=== PATIENT | female | born 1990 | race Caucasian/White ===

== ENCOUNTER → 2022-01-29 | Outpatient (CLI) | payer OTHER, SELFPAY | END | disposition home or self-care (01) | PROVIDERS: Visit Provider Family Medicine | DX: Z20.822 Contact with and (suspected) exposure to COVID-19 (principal) | CPT/HCPCS: 87635; U0003; U0005 ==

== ENCOUNTER → 2022-02-12 | Outpatient (CLI) | payer OTHER, SELFPAY ==
[2022-02-12 08:44] LABS: Thyroid Stim Hormone (TSH) 2.49 uIU/mL (0.358-3.74)
[2022-02-12 09:41] LABS: Hemoglobin A1c 5.1 % (3.8-5.6)
== END | disposition home or self-care (01) ==
LOC: LAB 07:07
PROVIDERS: PCP Family Medicine; Referring Provider Family Medicine; Visit Provider Family Medicine
DX: Z13.0 Encounter for screening for diseases of the blood and blood-forming organs and certain disorders involving the immune mechanism (principal); Z13.1 Encounter for screening for diabetes mellitus; Z13.29 Encounter for screening for other suspected endocrine disorder
CPT/HCPCS: 36415; 83036; 84443

== ENCOUNTER 2022-09-07 22:16 | Emergency (ER) | payer OTHER, SELFPAY ==
[2022-09-07 22:16] VITALS: BP 102/86; PULSE 123; RESP 18; TEMP 36.7; O2SAT 98; BMI 21.2
[2022-09-07] MEDS: Ondansetron 4 MG/2 ML Vial IV (22:52)
[2022-09-07 23:05] LABS: Absolute Lymphocyte Count 0.27 X10^3/uL (0.83-4.51); Absolute Neutrophil Count 9.5 X10^3/uL (2.0-7.7); Basophil# 0.02 X10^3/uL; Basophil% 0.2 % (0-1); Hematocrit 48.4 % (37-47); Hemoglobin 16.6 g/dL (12.0-15.0); Lymphocyte # 0.27 X10^3/ul (0.83-4.51); Lymphocyte % 2.7 % (19-41); Mean Corp Hgb Conc 34.3 g/dL (32-36); Mean Corpuscular Hgb 28.4 pg (27.0-32.0); Mean Corpuscular Volume 82.7 fL (81-99); Mean Platelet Vol. 10.4 fl (6.2-12.0); NRBC Flagged by Analyzer 0 % (0-5); Neutrophil # 9.52 X10^3/uL (2.7-7.7); Neutrophil % 93.7 % (47-70); POSITIVE DIFFERENTIAL YES; Platelet Count 188 K/mm3 (150-450); RBC Distribution Width CV 11.6 % (11.6-14.6); RBC Distribution Width SD 34.9 fl (35.1-43.9); Red Blood Count 5.85 M/mm3 (4.2-5.4); White Blood Count 10.2 K/mm3 (4.4-11.0)
[2022-09-07 23:07] LABS: Differential Indicated SCAN CRITERIA MET
[2022-09-07] MEDS: 0.9% Normal Saline 1,000 ML 999 ML IV ×2 (23:16→23:45)
[2022-09-07] MEDS: Diphenoxylate/Atrop 1 Tablet 2 TABLET PO (23:16)
[2022-09-07 23:18] LABS: Anion Gap 8 (5-15); BUN 18 mg/dL (7-18); BUN/Creat Ratio 16.4 RATIO (10-20); Calcium,Total 9.4 mg/dL (8.5-10.1); Chloride 103 mmol/L (98-107); EST Glomerular Filtration Rate 62 mL/min (>60); Est Glom Filt Rate - Afr Amer 75 mL/min (>60); Estimated Creatinine Clearance 73.15 ml/min; Glucose 157 mg/dL (74-106); Potassium 3.6 mmol/L (3.5-5.1); Sodium Level 135 mmol/L (136-145)
[2022-09-08 00:16] VITALS: RESP 18
--- NOTE | 2022-09-08 00:43 | EDS_ITS ---
HPI History of Present Illness Chief Complaint: Nausea/Vomiting/Diarrhea Narrative Narrative: Patient is a 31-year-old female who reports no significant past medical history. She states she woke this morning feeling normal but as the day progressed she developed loose stool/diarrhea and then bouts of nausea vomiting. She denies any known sick contacts. She denies any recent travel outside the country or antibiotic use. She states that she has had difficulty keeping fluids down and with the bouts of vomiting and diarrhea is concerned for dehydration and therefore comes in for evaluation. [facility] Medical History (Updated 09/08/22 @ 00:[address] Raleigh Ignacio, DO) Acne Home Medications drospirenone 3 mg-ethinyl estradiol 0.02 mg tablet (Loryna (28)) 1 tab PO DAILY 09/07/22 [History Last Taken Unknown] spironolactone 50 mg tablet 50 mg PO DAILY 09/07/22 [History Last Taken Unknown] tretinoin 0.025 % topical cream 1 applic topical QHS 09/07/22 [History Last Taken Unknown] diphenoxylate-atropine 2.5 mg-0.025 mg tablet (Lomotil) 1 tab PO 4X/DAY PRN PRN diarrhea 5 days #20 tabs 09/08/22 [Rx Last Taken Unknown] ondansetron 4 mg disintegrating tablet 4 mg PO TID PRN nausea and vomiting #21 tabs 09/08/22 [Rx Last Taken Unknown] Allergy/AdvReac Type Severity Reaction Status Date / Time cefadroxil Allergy Rash Verified 09/07/22 22:18 Penicillins Allergy Rash Verified 09/07/22 22:18 Sulfa (Sulfonamide Allergy Rash Verified 09/07/22 22:18 Antibiotics) Social History Smoking Status: Never smoker [facility] ED Constitutional Constitutional ED: Denies chills or fever(s) ENT ENT ED: Denies sore throat Cardiovascular Cardiovascular: Denies chest pain Respiratory/Chest Respiratory/Chest: Denies cough or dyspnea Gastrointestinal Gastrointestinal: Reports abdominal pain, diarrhea, nausea and vomiting Genitourinary Genitourinary ED: Denies dysuria Musculoskeletal Musculoskeletal: Reports myalgias Integumentary Denies rash Neurologic Neurologic: Denies headache(s) Hematologic/Lymphatic Hematologic/Lymphatic: Denies easy bleeding or easy bruising EXAM Physical Exam Const Vital Signs: 09/07/22 22:16 09/08/22 00:16 Temperature 98.0 F Temperature Source Temporal Pulse Rate 123 H Respiratory Rate 18 18 Blood Pressure 102/86 H Blood Pressure Mean 91 Pulse Ox 98 Oxygen Delivery Method Room Air Room Air Positive well nourished and well developed General Appearance ED: well developed HEENT Reports dry mucous membranes HEENT Narrative: Mucous membranes are dry and tacky. No airway edema or compromise. No signs of secondary infection in the posterior pharynx Mouth ED: Yes dry mucous membranes Mouth: dry mucous membranes Eyes PERRL and EOMs intact bilaterally General Eye ED: Negative for scleral icterus Neck supple Neck Narrative: No nuchal rigidity or meningeal signs noted Resp normal respiratory effort and clear to auscultation bilaterally Cardio regular rhythm Rate: tachycardic and other Other Details: Tachycardic rate with regular rhythm Radial pulses are plus 2 out of 4 bilaterally are equal and symmetric GI non-tender, non-distended and no masses GI Narrative: Abdomen is soft nontender nondistended with hyperactive bowel sounds. No voluntary guarding or rigidity no pulsatile mass Auscultation: hyperactive bowel sounds Palpation: soft Extremity normal to inspection Neuro oriented x3 and CN's II-XII intact bilaterally Sensorium / Orientation: alert Psych mental status grossly normal Skin no rashes or lesions noted Skin Narrative: Skin turgor is increased General Skin Exam: Negative for jaundice MDM MDM MDM Narrative Medical decision making narrative: Patient presented to the ER tachycardic but otherwise with stable vitals. Her abdomen is soft and nonsurgical so I felt no need for emergent imaging studies. Differential diagnosis includes viral gastroenteritis acute kidney injury electrolyte derangement such as hyponatremia or hyperkalemia infectious colitis pancreatitis or biliary colic. Based on her symptoms of diarrhea along with nausea and vomiting that came on gradually throughout the day this is most likely viral gastroenteritis. Basic labs were obtained which showed no signs of acute kidney injury or severe electrolyte derangement. She did have elevation of her creatinine from a baseline of 0.84-1.1. Consistent with dehydration but this elevation is not high enough to indicate MARI. Patient was given Lomotil and Zofran and 2 L of fluid. She had no further bouts of vomiting or diarrhea while in the ER. Therefore since she has been rehydrated and has had improvement of symptoms and overall work-up reveals no clinically significant changes she is otherwise safe for discharge with symptomatic care. History & Record Review Discussion w/independent historian: Patient Lab Data Attestation: I reviewed the patient's lab results. Labs: Laboratory Results - last 24 hr 09/07/22 09/07/22 23:00 23:00 WBC 10.2 RBC 5.85 H Hgb 16.6 H Hct 48.4 H MCV 82.7 MCH 28.4 MCHC 34.3 RDW Std Deviation 34.9 L RDW Coeff of Lauren 11.6 Plt Count 188 MPV 10.4 Immature Gran % (Auto) 0.400 Neut % (Auto) 93.7 H Lymph % (Auto) 2.7 L Hill % (Auto) 3.0 Eos % (Auto) 0.0 Baso % (Auto) 0.2 Absolute Neuts (auto) 9.5 H Absolute Lymphs (auto) 0.27 L Nucleated RBC % 0 Sodium 135 L Potassium 3.6 Chloride 103 Carbon Dioxide 24.0 Anion Gap 8 BUN 18 Creatinine 1.10 H Estim Creat Clear Calc 73.15 Est GFR (MDRD) Af Amer 75 Est GFR (MDRD) Non-Af 62 BUN/Creatinine Ratio 16.4 Glucose 157 H Calcium 9.4 Discharge Plan Triage Chief Complaint: Nausea/Vomiting/Diarrhea ED Provider: Raleigh Ignacio Dx/Rx/DC Orders Clinical Impression: Nausea vomiting and diarrhea, Dehydration Instructions: ED Dehydration (Adult), ED Gastroenteritis, Viral (Adult) Prescriptions: New diphenoxylate-atropine [Lomotil] 2.5-0.025 mg tablet 1 tab PO 4X/DAY PRN PRN (Reason: diarrhea) 5 Days Qty: 20 0RF ondansetron 4 mg tablet,disintegrating 4 mg PO TID PRN (Reason: nausea and vomiting) Qty: 21 0RF No Action tretinoin 0.025 % Cream 1 applic TOPICAL QHS spironolactone 50 mg tablet 50 mg PO DAILY drospirenone-ethinyl estradiol [Loryna (28)] 3-0.02 mg tablet 1 tab PO DAILY Stand Alone Forms: ED Work / School Excuse Primary Care Provider: Radha Barriga Referrals: Radha Barriga, DO [Primary Care Provider] - Activity Restrictions/Additional Instructions: Please take the medication as directed to help control your symptoms and keep yourself well-hydrated. Return to the ER should you have any further concerns Disposition Disposition: Home, Self Care Discharge Date/Time: 09/08/22 00:51
== END 2022-09-08 00:51 | disposition home or self-care (01) ==
PROVIDERS: Emergency Provider Emergency Medicine; PCP Family Medicine; Visit Provider Emergency Medicine
DX: R11.2 Nausea with vomiting, unspecified (principal); R19.7 Diarrhea, unspecified; E86.0 Dehydration
CPT/HCPCS: 80048; 85025; 96361; 96374; 99282; J7030; A4216; J2405

== ENCOUNTER → 2023-07-19 | Outpatient (CLI) | payer OTHER, SELFPAY ==
--- OUTSIDE RECORDS SUMMARY | 2023-07-19 07:57 | XMS RPT_ITS | CCD ---
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 Name Role Phone Maximino Benjaminsusan Vaughan Unavailable Unavailable [facility] Unavailable Unavailable MADDY BENJAMIN GENE Unavailable Unavailable Agustina Epstein APRN.CNP Primary Care Provider [phone] Allergies Allergy Classification Reported Allergen(s) Allergy Type Date of Onset Reaction(s) Facility (4 sources) cefadroxil; Translations: [CEFADROXIL] Drug Allergy 5 [facility] Repository (4 sources) Penicillins; Translations: [PENICILLINS] Propensity to adverse reactions (disorder) 5 [facility] Repository (4 sources) Sulfonamides (Antibiotic); Translations: [SULFA (SULFONAMIDE ANTIBIOTICS)] Propensity to adverse reactions (disorder) 5 [facility] Repository Medications Current Medications Medication Drug Class(es) Dates Sig (Normalized) Sig (Original) spironolactone 50 mg oral tablet (1 source) Aldosterone Antagonist Start: 10-30-2021 take 1 tablet by mouth once daily spironolactone (ALDACTONE) 50 mg tablet Take 1 tablet by mouth once daily. 90 tablet 1 10/30/2021 Active Completed/Discontinued Medications Medication Drug Class(es) Dates Sig (Normalized) Sig (Original) cholecalciferol 0.025 mg oral capsule (2 sources) Vitamin D Cholecalciferol, Vitamin D3, (VITAMIN D) 25 mcg (1,000 unit) cap Take 1,000 Units by mouth once daily. 0 Active Problems Problem Classification Problem Date Documented Da te Episodic/Chronic Other skin disorders (2 sources) Acne; Translations: [Acne, unspecified] Onset: 02-07-2015 12-27-2021 Episodic Results Test Name Value Interpretation Reference Range Facil ity Encounters Encounter Date Encounter Type Care Provider Facility Start: 10-27-2021 Refill Shasta Calixstephen vasques PA-C Work Phone: [facility] Dermatology Procedures Date Procedure Procedure Detail Performing Clinician Start: 01-21-2021 Adult depression screening assessment Brenden Vega PA-C Work Phone: Plan of Treatment Date Care Activity Detail Author Start: 12-23-2025 Urine microalbumin profile DTA P,TDAP,TD (2 - Td or Tdap) [facility] Start: 02-25-2024 PAP TESTING PAP TESTING [facility] Start: 01-21-2022 Adult depression scr eening assessment DEPRESSION SCREENING [facility] Start: 2010 HEPATITIS C SCREENING HEPATITIS C SC REENING [facility] Start: 2010 HIV SCREENING HIV SCREENING [facility] Immunizations Immunization Date Immunization Notes Care Provider Fa cility 02-20-2021 influenza virus vacc ine, unspecified formulation Brenden Vega PA-C Work Phone: [facility] 02-20-2021 influenza, injectabl e, quadrivalent, contains preservative Brenden Vega PA-C Work Phone: [facility] 05-28-2020 COVID-19 vaccine, fu ll dose (MODERNA) Brenden Vega PA-C Work Phone: [facility] 02-14-2019 influenza virus vacc ine, unspecified formulation Brenden Vega PA-C Work Phone: [facility] 05-23-2018 influenza virus vacc ine, unspecified formulation Brenden Vega PA-C Work Phone: [facility] 05-23-2018 influenza, injectabl e, quadrivalent, contains preservative Brenden Vega PA-C Work Phone: [facility] 05-19-2017 Human Papillomavirus 9-valent vaccine Brenden Vega PA-C Work Phone: [facility] 05-19-2017 influenza, injectabl e, quadrivalent, contains preservative Brenden Vega PA-C Work Phone: [facility] 12-24-2015 tetanus toxoid, redu anita diphtheria toxoid, and acellular pertussis vaccine, adsorbed Brenden RAIN-Jac Work Phone: [facility] 12-21-2014 hepatitis B vaccine, adult dosage Brenden Snydercarly RAIN-C Work Phone: [facility] Work Phone: 12-21-2014 hepatitis B vaccine, pediatric or pediatric/adolescent dosage Brendenana rosa RAIN-C Work Phone: [facility] 07-23-2014 hepatitis B vaccine, adult dosage Brenden Snydercarly RAIN-C Work Phone: [facility] 06-23-2014 hepatitis B vaccine, adult dosage Brenden Snydercarly RAIN-C Work Phone: [facility] Payers Date Payer Category Payer Unknown [employer] PPO OOS [id number] 2018-Present [phone] [address] [place] [address] PPO [id number] Social History Date Type Detail Facility Tobacco smoking stat [facility] Never smoked tobacco [facility] Start: 07-22-2021 End: 09-15-2021 Alcohol intake Current drinker of alcohol (finding) [facility] Start: 07-24-2019 History SDOH Alcohol Std Drinks 1 [facility] Start: 07-24-2019 History SDOH Alcohol Binge 4 [facility] Start: 07-27-2014 History SDOH Alcohol Comment Occasionally [facility] Start: 1990 Sex Assigned At Female C [facility] Start: 09-05-2021 End: 09-15-2021 Exposure to SARS-CoV-2 (event) Not sure [facility] Clinical Notes 11-05-2020 to 10-30-2021 Telephone Encounter - Jackie Vital MA - 10/30/2021 7:10 AM EDTTelephone Encounter - Marquita Abreu - 10/27/2021 1:16 PM EDTTelephone Encounter - Shasta Finley PA-C - 10/27/2021 1:08 PM EDT Note Date & Type Note Facility 10-30-2021 Miscellaneous Notes Patient states she is still taking this she does not know how it was taken off She does need a refill LMTCO Check with patient if she is still taking the spironolactone as it is off her medication list Pharmacy faxes requesting refill: Pending Prescriptions Disp Refills SPIRONOLACTONE 50 MG TABLET 90 tablet 0 Sig: Take 1 tablet by mouth once daily. Date of last visit: 04/28/21 Phone #: [phone] (home) [phone] (cell) The patients preferred pharmacy has been captured for this encounter? yes documented in this encounter [facility] 09-15-2021 Note HNO ID: [id number] Author: Agustina Epstein APRN.ARCH CUSHION SKIVING MACHINE OPERATOR Service: ? Author Type: Nurse Practitioner Type: Progress Notes Filed: 09/15/2021 4:27 PM Note Text: SUBJECTIVE: Marii Hillman is a 30 year old female here today for Fever, Cough, Fatigue, Headache, and Diarrhea. HPI: Marii presents with URI symptoms. She started about 10 days ago. Pt finished antibiotic over the weekend from [facility] in [place]. Pt got no relief from antibiotic (Zpak). Pt took home Covid test yesterday, negative result. 100.4 this am. PAST MEDICAL HISTORY Diagnosis Date - Acne ALLERGIES Allergen Reactions - Duracef [Cefadroxil] Rash - Penicillins Rash - Sulfa (Sulfonamide * Rash Medications: Current Outpatient Medications Medication Sig Dispense Refill - melatonin 5 mg tablet Take 10 mg by mouth at bedtime as needed for for insomnia. - Drospirenone-Ethinyl Estradiol (MIGUEL 28) 3-0.02 mg per tablet TAKE 1 TABLET DAILY 84 tablet 3 - fluticasone propionate (FLONASE ALLERGY RELIEF NASAL) Use in the nose as needed. - Cholecalciferol, Vitamin D3, (VITAMIN D) 25 mcg (1,000 unit) cap Take 1,000 Units by mouth once daily. - tretinoin (RETIN-A) 0.025 % topical cream Apply pea size drop to entire face at bedtime 45 g 3 - azithromycin (ZITHROMAX) 250 mg tablet Two tablets day 1 then one tablet days 2-5 (Patient not taking: Reported on 09/15/2021 ) 6 tablet 0 No current facility-administered medications for this visit. PAST SURGICAL HISTORY Procedure Laterality Date - EXTRACTION, ERUPTED TOOTH OR EXPOSED ROOT (ELEVATION AND/OR FORCEPS REMOVAL) [place] teeth Social History Tobacco Use - Smoking status: Never Smoker - Smokeless tobacco: Never Used Vaping Use - Vaping Use: Never used Substance Use Topics - Alcohol use: Yes Comment: Occasionally - Drug use: No FAMILY HISTORY Problem Relation Age of Onset - Hypertension Father - Diabetes Maternal Grandmother - Diabetes Paternal Grandfather Review of Systems Constitutional: Positive for fatigue and fever. HENT: Negative. Eyes: Negative. Respiratory: Positive for cough. Cardiovascular: Negative. Gastrointestinal: Positive for diarrhea. Negative for nausea. Endocrine: Negative. Genitourinary: Negative. Musculoskeletal: Negative. Skin: Negative. Neurological: Positive for headaches. Hematological: Negative. Psychiatric/Behavioral: Negative. OBJECTIVE: BP 114/79 Pulse 102 Temp 36.7 ?C (98.1 ?F) (Oral) Ht 170.2 cm (5' 7 ) Wt 53.4 kg (117 lb 11.2 oz) LMP 02/10/2021 SpO2 99% BMI 18.43 kg/m? BMI 18.43 kg/(m2) Physical Exam Constitutional: Appearance: Normal appearance. She is not ill-appearing. HENT: Right Ear: Tympanic membrane normal. Left Ear: Tympanic membrane normal. Nose: Mucosal edema present. Right Turbinates: Enlarged. Left Turbinates: Enlarged. Right Sinus: No maxillary sinus tenderness or frontal sinus tenderness. Left Sinus: No maxillary sinus tenderness. Mouth/Throat: Pharynx: Oropharynx is clear. Posterior oropharyngeal erythema (Mild cobblestone appearance) present. No oropharyngeal exudate. Cardiovascular: Rate and Rhythm: Normal rate and regular rhythm. Heart sounds: Normal heart sounds. Pulmonary: Effort: Pulmonary effort is normal. Breath sounds: Normal breath sounds. Skin: General: Skin is warm and dry. Coloration: Skin is pale. Neurological: Mental Status: She is alert and oriented to person, place, and time. ASSESSMENT/PLAN: 1. Acute non-recurrent maxillary sinusitis - ICD9: 461.0, ICD10: J01.00 - Will begin treatment with as per antibiotic as written, see orders - Supportive care with plenty of fluids, rest, and analgesia prn. - CLINDAMYCIN HCL 300 MG CAPSULE Return if symptoms worsen or fail to improve. Agustina Epstein APRN.ARCH CUSHION SKIVING MACHINE OPERATOR The above medical documentation was generated using [employer] recognition system, as such, the contents may contain grammatical errors. [facility] 09-09-2021 History of Present illness Narrative DATE OF SERVICE: 09/09/2021 CHIEF COMPLAINT: Cough. HISTORY OF PRESENT ILLNESS: The patient states she has had a cough and congestion for the last 4-5 days. She states the cough is nonproductive. Denies any fevers that have been greater than 100.4. She states her highest one was 100.2, and that was this morning. She states she had 99.8 on Wednesday. She states she did have some diarrhea over the weekend. Denies any currently. Denies any nausea or vomiting. Denies any COVID exposures. Denies any influenza exposures. Denies any loss of taste or smell. Denies any chest pain. She states she did have a little bit of shortness of breath with coughing episodes while in the shower this morning. Denies any shortness of breath currently. Denies any recent travel, trauma, surgery or hormone replacement therapy. PAST MEDICAL HISTORY AND SOCIAL HISTORY: As per nursing records, which were reviewed. MEDICATIONS AND ALLERGIES: As per nursing records, which were reviewed. REVIEW OF SYSTEMS: All 10 systems otherwise reviewed and found to be negative other [facility] PATIENT NAME: MARII HILLMAN Jennifer Kowalski MEDICAL REC #: [id number] [place] [address] [facility] REPORT [facility] PHYSICIAN than that in [place] PHYSICAL EXAMINATION: This is a 30-year-old female who is well-developed, well-nourished and in no acute distress. Vital signs per chart, including a temperature of 98.6, pulse oximetry 98%, respiratory rate 16, pulse 89, blood pressure 126/80. HEENT: Head is normocephalic, atraumatic. Eyes are PERRLA. TMs are clear bilaterally. Nasal mucosa is pink. Septum is midline. Some clear rhinorrhea. No sinus tenderness. Oropharynx is without hypertrophy, erythema or exudate. Mucus membranes are moist. Neck: Trachea is midline. Neck is supple without JVD or lymphadenopathy. No meningeal signs. Cardiac: Regular rate and rhythm, normal S1, S2. No murmurs, rubs or clicks. Respiratory: Lungs are clear to auscultation bilaterally without wheezes, rhonchi or crackles. Neurologically, patient is alert and oriented x3. Speech is clear and appropriate. No gross focal neurologic deficits noted. TREATMENT COURSE: I did instruct the patient that I felt like this is viral in nature. Rest, fluids, [id number] cough decongestant. Follow up with her PCP for a recheck in 5 days. ER warning signs given. I did instruct patient that if she is not feeling better in the next couple of days, she could start taking the [facility] PATIENT NAME: MARII HILLMAN Jennifer Kowalski MEDICAL REC #: [id number] [place] [address] [facility] REPORT [facility] PHYSICIAN Alexa de la rosa take as directed. The patient was agreeable on disposition. CLINICAL IMPRESSION: Upper respiratory infection. Brenden Vega PA-C [id number] SSI File#: [id number] END OF DOCUMENT / CHANGE LOG FOLLOWS Last Edited By [employer]c. Signed By Brenden Vega PAC #[email or web address] Brenden Vega PAC #[email or web address] on 09/15/2021 08:32 ET on 09/15/2021 08:32 ET Revision Number - 2 Verified/Reviewed by 09/15/2132 SHAYLEE [facility] PATIENT NAME: MARII HILLMANAlex Jennifer Kowalski MEDICAL REC #: [id number] [place] [address] [facility] REPORT [facility] PHYSICIAN documented in this encounter [facility] 07-22-2021 Note HNO ID: [id number] Author: Agustina Epstein APRN.ARCH CUSHION SKIVING MACHINE OPERATOR Service: ? Author Type: Nurse Practitioner Type: Progress Notes Filed: 07/22/2021 3:08 PM Note Text: Patient has consented to patient-provider interaction via Zoom visit for the medical decision making documented in this encounter via real-time Video and Audio or telephone. Time Spent: 11-20 minutes SUBJECTIVE: Marii Hillman is a 30 year old female here today for Cough, Sore Throat, Fever, Nasal Congestion, and fatigue HPI: Marii presents today with upper respiratory infection symptoms including cough, sore throat, fever, congestion and fatigue. Symptoms started on Thursday 07/20. Highest temp was 100.3 this morning. While talking the phone it was 99.0 today. Fatigue also started today. Shehas taken OTC Cold AND flu, no relief. 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 No family members sick that she is aware of. She did get her COVID booster in May. PAST MEDICAL HISTORY Diagnosis Date - Acne ALLERGIES Allergen Reactions - Duracef [Cefadroxil] Rash - Penicillins Rash - Sulfa (Sulfonamide * Rash Medications: Current Outpatient Medications Medication Sig Dispense Refill - melatonin 5 mg tablet Take 10 mg by mouth at bedtime as needed for for insomnia. - Drospirenone-Ethinyl Estradiol (MIGUEL 28) 3-0.02 mg per tablet TAKE 1 TABLET DAILY 84 tablet 3 - fluticasone propionate (FLONASE ALLERGY RELIEF NASAL) Use in the nose as needed. - Cholecalciferol, Vitamin D3, (VITAMIN D) 25 mcg (1,000 unit) cap Take 1,000 Units by mouth once daily. - tretinoin (RETIN-A) 0.025 % topical cream Apply pea size drop to entire face at bedtime 45 g 3 - spironolactone (ALDACTONE) 50 mg tablet Take 1 tablet by mouth every morning. 90 tablet 3 No current facility-administered medications for this visit. PAST SURGICAL HISTORY Procedure Laterality Date - EXTRACTION, ERUPTED TOOTH OR EXPOSED ROOT (ELEVATION AND/OR FORCEPS REMOVAL) [place] teeth Social History Tobacco Use - Smoking status: Never Smoker - Smokeless tobacco: Never Used Vaping Use - Vaping Use: Never used Substance Use Topics - Alcohol use: Yes Comment: Occasionally - Drug use: No FAMILY HISTORY Problem Relation Age of Onset - Hypertension Father - Diabetes Maternal Grandmother - Diabetes Paternal Grandfather Review of Systems Constitutional: Positive for fatigue and fever. Negative for chills. HENT: Positive for congestion, postnasal drip, sore throat and voice change. Negative for ear pain. Clear drainage from nose. Eyes: Negative. Respiratory: Positive for cough. Negative for chest tightness, shortness of breath and wheezing. Cough is unproductive Cardiovascular: Negative for chest pain, palpitations and leg swelling. Gastrointestinal: Negative for abdominal pain, constipation, diarrhea, nausea and vomiting. Endocrine: Negative. Genitourinary: Negative. Musculoskeletal: Negative for back pain and myalgias. Skin: Negative for rash. Allergic/Immunologic: Negative. Neurological: Positive for headaches. Negative for dizziness. Hematological: Negative. OBJECTIVE: Temp 37.2 ?C (99 ?F) (Temporal) LMP 02/10/2021 No weight on file for this encounter. Physical Exam Constitutional: Appearance: Normal appearance. She is ill-appearing. HENT: Nose: Comments: Some postnasal drip noted Mouth/Throat: Pharynx: Posterior oropharyngeal erythema present. Pulmonary: Effort: Pulmonary effort is normal. Skin: Coloration: Skin is pale. Neurological: Mental Status: She is alert and oriented to person, place, and time. ASSESSMENT/PLAN: 1. Acute non-recurrent sinusitis, unspecified location - ICD9: 461.9, ICD10: J01.90 (primary diagnosis) - Will begin treatment with Zithromax pack as directed - Supportive care with plenty of fluids, rest, and analgesia prn. -Recommended use of a saline nasal flush to decrease mucus production and drainage. -Offered to test the patient for coronavirus and/or flu but she declined at this time will stay in quarantine until 5 days or symptoms resolved. - AZITHROMYCIN 250 MG TABLET 2. Fever, unspecified fever cause - ICD9: 780.60, ICD10: R50.9 -Encouraged her to increase fluids with small sips every 15 minutes if she develops any nausea. -Ibuprofen or Tylenol can be used as directed headache and fever. - AZITHROMYCIN 250 MG TABLET 3. Cough - ICD9: 786.2, ICD10: R05.9 -Saline nasal flush may help with the cough. If cough worsens she is to call for another appointment. - AZITHROMYCIN 250 MG TABLET 4. Fatigue, unspecified type - ICD9: 780.79, ICD10: R53.83 -Rest -Off work for at least the next 2 days and may return to work on Tuesday 07/25 if no fever or worsening symptoms. - AZITHROMYCIN 250 MG TABLET Return if symptoms worsen or fail to improve. Agustina Epstein APRN.ARCH CUSHION SKIVING MACHINE OPERATOR The above medical documentation was generated using [employer] voice recognition system, as (more content not included)... [facility] 04-28-2021 Note HNO ID: [id number] Author: Shasta Finley PA-C Service: ? Author Type: Physician [employer] Teacher Type: Progress Notes Filed: 04/28/2021 11:47 PM Note Text: This is a 30 year old White female who presents today for a follow up for her acne. Patient states that she is currently on spironolactone and tretinoin cream. She states she is doing well and staying clear. She has been tolerating the medicine well without any problems. ACTIVE PROBLEM LIST Acne ALLERGIES Allergen Reactions - Duracef [Cefadroxil] Rash - Penicillins Rash - Sulfa (Sulfonamide * Rash FAMILY HISTORY Problem Relation Age of Onset - Hypertension Father - Diabetes Maternal Grandmother - Diabetes Paternal Grandfather Social History Tobacco Use - Smoking status: Never Smoker - Smokeless tobacco: Never Used Vaping Use - Vaping Use: Never used Substance Use Topics - Alcohol use: Yes Comment: Occasionally - Drug use: No Current Outpatient Medications Medication Sig Dispense Refill - melatonin 5 mg tablet Take 10 mg by mouth at bedtime as needed for for insomnia. - spironolactone (ALDACTONE) 50 mg tablet Take 1 tablet by mouth every morning. 90 tablet 3 - Drospirenone-Ethinyl Estradiol (MIGUEL 28) 3-0.02 mg per tablet TAKE 1 TABLET DAILY 84 tablet 3 - fluticasone propionate (FLONASE ALLERGY RELIEF NASAL) Use in the nose as needed. - Cholecalciferol, Vitamin D3, (VITAMIN D) 25 mcg (1,000 unit) cap Take 1,000 Units by mouth once daily. - tretinoin (RETIN-A) 0.025 % topical cream Apply pea size drop to entire face at bedtime 45 g 3 No current facility-administered medications for this visit. PAST SURGICAL HISTORY Procedure Laterality Date - EXTRACTION, ERUPTED TOOTH OR EXPOSED ROOT (ELEVATION AND/OR FORCEPS REMOVAL) [place] teeth REVIEW OF SYSTEMS GENERAL: Patient feels well and denies any recent fevers, chills, or night sweats. SKIN: Negative for rash and itching, Positive for lesions: face PHYSICAL EXAMINATION The patient is pleasant and in no distress. She is alert and oriented x 3. Involving the face, chest and back. -face is clear with atrophic scarring with pitted scars of b/l cheeks -back and chest are clear ASSESSMENT/PLAN: 1. Acne vulgaris - ICD9: 706.1, ICD10: L70.0 -continue Tretinoin 0.025% cream apply pea sized amount to entire face qhs, has on hand -discussed side effects of dryness/skin irritation -may use OTC CeraVe or Cetaphil cream with SPF 30 daily -continue spironolactone 50 mg once daily, eRx sent -Side effects of spironolactone include: postural hypotension, increased frequency of urination, breast tenderness, menstrual spotting, and the need for contraception due to risk of feminization. -continue gentle cleansers and daily face moisturizers with spf 30 - SPIRONOLACTONE 50 MG TABLET Shasta Finley PA-C Return in about 1 year (around 04/28/2022). [facility] 02-24-2021 Note HNO ID: [id number] Author: Agustina Epstein APRN.ARCH CUSHION SKIVING MACHINE OPERATOR Service: ? Author Type: Nurse Practitioner Type: Progress Notes Filed: 02/24/2021 5:27 PM Note Text: SUBJECTIVE: Marii Hillman is a 30 year old female here today for an annual physical. I reviewed her past medical, surgical, social, and family histories today and updated chart. Allergies, chronic medications, and supplements were also reviewed and her list is now up to date. HPI: Marii presents today for annual female wellness exam with Pap. Periods are regular 28 day cycle. No excessive clotting or cramping. Not sexually active at this time. No other complaints. She is performing self-breast exams? Yes Any concerns about her breasts? No Any family history of breast cancer? No Patient's last menstrual period was 02/10/2021. Are her periods regular? Yes Any concerns about her periods? No Current method of control: Oral contraceptives She wants STD testing? No Her medications were reviewed today and her list is now up to date. She is compliant on taking her medications :Yes She is tolerating her medication(s) without side effects: Yes She is following an appropriate diet for her medical problems: Yes She is getting some exercise in? Yes PAST MEDICAL HISTORY Diagnosis Date - Acne ALLERGIES Allergen Reactions - Duracef [Cefadroxil] Rash - Penicillins Rash - Sulfa (Sulfonamide * Rash Medications: Current Outpatient Medications Medication Sig Dispense Refill - fluticasone propionate (FLONASE ALLERGY RELIEF NASAL) Use in the nose. - Cholecalciferol, Vitamin D3, (VITAMIN D) 25 mcg (1,000 unit) cap Take 1,000 Units by mouth once daily. - Drospirenone-Ethinyl Estradiol (MIGUEL 28) 3-0.02 mg per tablet Take 1 tablet by mouth once daily. 84 tablet 0 - spironolactone (ALDACTONE) 50 mg tablet Take 1 tablet by mouth every morning. 90 tablet 1 - tretinoin (RETIN-A) 0.025 % topical cream Apply pea size drop to entire face at bedtime 45 g 3 No current facility-administered medications for this visit. PAST SURGICAL HISTORY Procedure Laterality Date - EXTRACTION, ERUPTED TOOTH OR EXPOSED ROOT (ELEVATION AND/OR FORCEPS REMOVAL) [place] teeth Social History Tobacco Use - Smoking status: Never Smoker - Smokeless tobacco: Never Used Vaping Use - Vaping Use: Never used Substance Use Topics - Alcohol use: Yes Comment: Occasionally - Drug use: No FAMILY HISTORY Problem Relation Age of Onset - Hypertension Father - Diabetes Maternal Grandmother - Diabetes Paternal Grandfather Review of Systems Constitutional: Negative for chills, fatigue and fever. HENT: Negative. Eyes: Negative. Respiratory: Negative for cough, chest tightness, shortness of breath and wheezing. Cardiovascular: Negative for chest pain, palpitations and leg swelling. Gastrointestinal: Negative for abdominal pain, constipation, diarrhea, nausea and vomiting. Endocrine: Negative. Genitourinary: Negative. Negative for vaginal bleeding, vaginal discharge and vaginal pain. Musculoskeletal: Negative for back pain and myalgias. Skin: Negative. Allergic/Immunologic: Negative. Neurological: Negative for dizziness, numbness and headaches. Hematological: Negative. Psychiatric/Behavioral: Negative. OBJECTIVE: BP 108/70 Pulse 86 Temp 36.8 ?C (98.2 ?F) (Oral) Ht 170.2 cm (5' 7 ) Wt 52.2 kg (115 lb) LMP 02/10/2021 SpO2 100% BMI 18.01 kg/m? Body mass index is 18.01 kg/m?. Physical Exam Exam conducted with a machine preservative filler present. Constitutional: Appearance: Normal appearance. She is not ill-appearing. Pulmonary: Effort: Pulmonary effort is normal. Genitourinary: Exam position: Lithotomy position. Labia: Right: Rash present. No tenderness. Left: Rash present. No tenderness. Vagina: Normal. Cervix: Friability, erythema and cervical bleeding present. Uterus: Normal. Adnexa: Right adnexa normal and left adnexa normal. Comments: Located at the 5 o'clock position. Patient admits to using toys . Musculoskeletal: Right lower leg: No edema. Left lower leg: No edema. Skin: General: Skin is warm and dry. Neurological: Mental Status: She is alert and oriented to person, place, and time. Psychiatric: Mood and Affect: Mood normal. ASSESSMENT/PLAN: 1. Cervical cancer screening - ICD9: V76.2, ICD10: Z12.4 - Completed pap test and breast exam - Encouraged monthly BSE - Follow up for annual exam in one year. - IGP, APTIMA HPV Agustina Epstein, COMPANY DOCTOR.ARCH CUSHION SKIVING MACHINE OPERATOR The above medical documentation was generated using [employer] recognition system, as such, the contents may contain grammatical errors. [facility] 02-20-2021 Note HNO ID: [id number] Author: Damari Ruggiero, DO Service: ? Author Type: Physician Type: Progress Notes Filed: 02/20/2021 3:47 PM Note Text: New Patient Consult REASON FOR VISIT Marii Hillman is a 30 year old female who is scheduled for a consult at the request of Agustina Epstein for Consult (Cyst on left breast). My final recommendations will be communicated back to the requesting physician by the way of the shared medical record, fax, or via US Mail History of Present Illness: This is a 30 F that presents with a left nipple cyst that intermittently drains. She has noticed it over the past few months on the inferior aspect of her nipple. No pain. Drainage is consisntent with sebaceous material. No fevers or chills. No palpable lumps and no family hx of breast cancer. PAST MEDICAL HISTORY Diagnosis Date - Acne PAST SURGICAL HISTORY Procedure Laterality Date - EXTRACTION, ERUPTED TOOTH OR EXPOSED ROOT (ELEVATION AND/OR FORCEPS REMOVAL) [place] teeth FAMILY HISTORY Problem Relation Age of Onset - Hypertension Father - Diabetes Maternal Grandmother - Diabetes Paternal Grandfather Social History Tobacco Use - Smoking status: Never Smoker - Smokeless tobacco: Never Used Vaping Use - Vaping Use: Never used Substance Use Topics - Alcohol use: Yes Comment: Occasionally - Drug use: No MEDICATIONS Current Outpatient Medications Medication Sig Dispense Refill - fluticasone propionate (FLONASE ALLERGY RELIEF NASAL) Use in the nose. - Cholecalciferol, Vitamin D3, (VITAMIN D) 25 mcg (1,000 unit) cap Take 1,000 Units by mouth once daily. - Drospirenone-Ethinyl Estradiol (MIGUEL 28) 3-0.02 mg per tablet Take 1 tablet by mouth once daily. 84 tablet 0 - spironolactone (ALDACTONE) 50 mg tablet Take 1 tablet by mouth every morning. 90 tablet 1 - tretinoin (RETIN-A) 0.025 % topical cream Apply pea size drop to entire face at bedtime 45 g 3 No current facility-administered medications for this visit. CURRENT ALLERGIES ALLERGIES Allergen Reactions - Duracef [Cefadroxil] Rash - Penicillins Rash - Sulfa (Sulfonamide * Rash REVIEW OF SYSTEMS General: No weight loss, malaise or fevers. Neuro: No Hx of stroke or seizures Respiratory: No history of current cough or dyspnea, or pneumonia in the past 6 weeks. No history of respiratory/pulmonary symptoms or problems Cardiovascular: No history of HTN requiring medication, no history of angina, CHF, MS, cardiac surgery or stents. Denies rest pain, gangrene or revascularization/amputation for PVD. No history of cardiovascular symptoms or problems. GI: No history of GI symptoms or problems. No history of esophageal varices, recent ascites, or ETOH greater than 2 drinks per day. : No history of UTI in past 6 weeks. No history of renal failure. Not currently on or requiring dialysis. No history of symptoms or problems. Endocrine: No history of diabetes. Has not taken steroids within the past 30 days. No history of endocrinological symptoms or problems. Hematology: No history of bleeding or clotting disorder. Pt is not taking anti-coagulation or platelet medications. No history of hematological symptoms or problems. Oncology: No history of CA metastasis, chemo within 30 days, or radiotherapy within 90 days. Has not lost 10% of body wt in 6 months. No history of oncological symptoms or problems. Psych: No history of psychiatric symptoms or problems. Musculoskeletal: Negative for joint pain or swelling, back pain or muscle pain. Skin: Negative for lesions, rash and itching. PHYSICAL EXAMINATION Ht 5' 7 (1.70m) Wt 115 lb (52.2kg) LMP 01/06/2021 BMI 18.01 kg/(m2). General Appearance: Well appearing, alert, in no acute distress, well-hydrated, well nourished. Skin: Skin color, texture, turgor normal, Head: Normocephalic, Oropharynx: Lips, mucosa, and tongue normal, Neck: Supple, Lungs: Unlabored on room air Heart: RR Extremities: No deformities, edema, Neuro: Gait normal. Abdomen: Abdomen soft, non-tender. Bowel sounds normal. No masses, organomegaly Breast: Left breast without palpable abnormality. There is no nipple discharge. There is a 2-3 mm cyst at the inferior aspect of her nipple. No drainage at this time. No lymphadenopathy. Diagnostic tests reviewed for today's visit: n/a Assessment ASSESSMENT/PLAN: 1. Solitary cyst of left breast - ICD9: 610.0, ICD10: N60.02 - Cyst clinically consistent with a small sebaceous cyst of the nipple versus blocked duct. No breast feeding history or family hx of breast cancer. As she has had no imaging we will get a breast US to rule out a deeper ductal abnormality. If this is normal we will plan to clinically follow. - US BREAST LTD Damari Ruggiero, DATE: 02/20/21 TIME: 3:42 PM [facility] 01-21-2021 Note HNO ID: [id number] Author: Agustina Epstein APRN.ARCH CUSHION SKIVING MACHINE OPERATOR Service: ? Author Type: Nurse Practitioner Type: Progress Notes Filed: 01/21/2021 8:41 PM Note Text: SUBJECTIVE: Marii Hillman is a 30 year old female here today for an annual physical. I reviewed her past medical, surgical, social, and family histories today and updated chart. Allergies, chronic medications, and supplements were also reviewed and her list is now up to date. HPI: Marii presents today for a yearly checkup. She is also having an increase in her stress and anxiety especially at work due to Covid. She is hiking and walking to help with stress reduction. At this time she needs a refill on her control. She is having regular menstrual cycles every month. She is not sexually active at this time. Last Pap was in 2014. She has a white lump on the left nipple. She states that she at one time popped it and had white drainage. It did improve and then has now come back again. Denies any pain or discomfort. She follows with different physician for gynecological exams.none She is performing self-breast exams? Yes Any concerns about her breasts? Yes, Has a white bump on left breast. Any family history of breast cancer? No Patient's last menstrual period was 01/06/2021 (approximate). Are her periods regular? Yes Any concerns about her periods? No Current method of control: Oral contraceptives Her medications were reviewed today and her list is now up to date. She is compliant on taking her medications :Yes She is tolerating her medication(s) without side effects: Yes She is trying to eat a balanced diet: Yes She is getting some exercise in: Yes PAST MEDICAL HISTORY Diagnosis Date - Acne ALLERGIES Allergen Reactions - Duracef [Cefadroxil] Rash - Penicillins Rash - Sulfa (Sulfonamide * Rash Medications: Current Outpatient Medications Medication Sig Dispense Refill - fluticasone propionate (FLONASE ALLERGY RELIEF NASAL) Use in the nose. - Cholecalciferol, Vitamin D3, (VITAMIN D) 25 mcg (1,000 unit) cap Take 1,000 Units by mouth once daily. - spironolactone (ALDACTONE) 50 mg tablet Take 1 tablet by mouth every morning. 90 tablet 1 - tretinoin (RETIN-A) 0.025 % topical cream Apply pea size drop to entire face at bedtime 45 g 3 - Drospirenone-Ethinyl Estradiol (MIGUEL 28) 3-0.02 mg per tablet TAKE 1 TABLET DAILY 84 tablet 3 - minocycline (MINOCIN, DYNACIN) 100 mg capsule Take 1 capsule by mouth once daily. With food (Patient not taking: Reported on 01/21/2021 ) 90 capsule 1 No current facility-administered medications for this visit. PAST SURGICAL HISTORY Procedure Laterality Date - EXTRACTION, ERUPTED TOOTH OR EXPOSED ROOT (ELEVATION AND/OR FORCEPS REMOVAL) [place] teeth Social History Tobacco Use - Smoking status: Never Smoker - Smokeless tobacco: Never Used Vaping Use - Vaping Use: Never used Substance Use Topics - Alcohol use: Yes Comment: Occasionally - Drug use: No FAMILY HISTORY Problem Relation Age of Onset - Hypertension Father - Diabetes Maternal Grandmother - Diabetes Paternal Grandfather Review of Systems Constitutional: Negative for chills, fatigue and fever. HENT: Negative. Respiratory: Negative for cough, chest tightness, shortness of breath and wheezing. Cardiovascular: Negative for chest pain, palpitations and leg swelling. Gastrointestinal: Negative for abdominal pain, constipation, diarrhea, nausea and vomiting. Musculoskeletal: Negative for back pain and myalgias. Skin: Negative for rash and wound. White fluid-filled pimple on the left nipple. Neurological: Negative for dizziness, numbness and headaches. Psychiatric/Behavioral: Negative for dysphoric mood. The patient is nervous/anxious. OBJECTIVE: BP 110/74 Pulse 76 Temp 36.9 ?C (98.5 ?F) (Oral) Ht 170.2 cm (5' 7 ) Wt 52.4 kg (115 lb 8 oz) LMP 01/06/2021 (Approximate) SpO2 100% BMI 18.09 kg/m? Body mass index is 18.09 kg/m?. Physical Exam Constitutional: Appearance: Normal appearance. She is not ill-appearing. Cardiovascular: Rate and Rhythm: Normal rate and regular rhythm. Heart sounds: Normal heart sounds. Pulmonary: Effort: Pulmonary effort is normal. Breath sounds: Normal breath sounds. Musculoskeletal: Right lower leg: No edema. Left lower leg: No edema. Skin: General: Skin is warm and dry. Comments: There is 1/2 cm pus filled cyst on the tip of the left nipple. There is no pain to this area. No open areas or drainage. Neurological: Mental Status: She is alert and oriented to person, place, and time. Psychiatric: Mood and Affect: Mood normal. ASSESSMENT/PLAN: 1. Cyst of left breast - ICD9: 610.0, ICD10: N60.02 (primary diagnosis) -We will start her on cephalexin. Patient does have an allergy to amoxicillin we did discuss potential for cross reaction. She states that the reaction to penicillin was not that bad and she is willing to try (more content not included)... [facility] 11-14-2020 Note HNO ID: [id number] Author: Agustina Epstein APRN.ARCH CUSHION SKIVING MACHINE OPERATOR Service: ? Author Type: Nurse Practitioner Type: Progress Notes Filed: 11/14/2020 5:37 PM Note Text: SUBJECTIVE: Marii Hillman is a 30 year old female here today for Fever, Cough, Rash, Headache, and Diarrhea. HPI: Marii presents today with flulike symptoms. Patient states the symptoms started on Wednesday 5 days ago. Symptoms include fever, cough, chills.she has also developed a rash on trunk, side of face and hair line that started Wed. Little red spots, not itchy. Diarrhea started today. Headache on back of neck and alevism. Taking Tylenol/Ibuprofen. Last dose @ 2:30 today. Has decreased energy. Fever was up to 101.7. She has had 3 watery stools today. No other sick family. Marii was checked for Covid Wednesday this was negative. PAST MEDICAL HISTORY Diagnosis Date - Acne ALLERGIES Allergen Reactions - Duracef [Cefadroxil] Rash - Penicillins Rash - Sulfa (Sulfonamide * Rash Medications: Current Outpatient Medications Medication Sig Dispense Refill - spironolactone (ALDACTONE) 50 mg tablet Take 1 tablet by mouth every morning. 90 tablet 1 - minocycline (MINOCIN, DYNACIN) 100 mg capsule Take 1 capsule by mouth once daily. With food 90 capsule 1 - tretinoin (RETIN-A) 0.025 % topical cream Apply pea size drop to entire face at bedtime 45 g 3 - Drospirenone-Ethinyl Estradiol (MIGUEL 28) 3-0.02 mg per tablet TAKE 1 TABLET DAILY 84 tablet 3 No current facility-administered medications for this visit. PAST SURGICAL HISTORY Procedure Laterality Date - EXTRACTION, ERUPTED TOOTH OR EXPOSED ROOT (ELEVATION AND/OR FORCEPS REMOVAL) [place] teeth Social History Tobacco Use - Smoking status: Never Smoker - Smokeless tobacco: Never Used Vaping Use - Vaping Use: Never used Substance Use Topics - Alcohol use: Yes Comment: Occasionally - Drug use: No FAMILY HISTORY Problem Relation Age of Onset - Hypertension Father - Diabetes Maternal Grandmother - Diabetes Paternal Grandfather Review of Systems Constitutional: Positive for chills, fatigue and fever. HENT: Negative for congestion, ear pain, sinus pressure, sinus pain and sore throat. Eyes: Negative. Respiratory: Positive for cough. Negative for chest tightness, shortness of breath and wheezing. Cardiovascular: Negative for chest pain, palpitations and leg swelling. Gastrointestinal: Positive for diarrhea. Negative for abdominal pain, constipation, nausea and vomiting. Endocrine: Negative. Genitourinary: Negative. Musculoskeletal: Positive for myalgias (improved). Negative for back pain and neck pain. Skin: Positive for rash. Negative for wound. Neurological: Positive for headaches. Negative for dizziness and numbness. Psychiatric/Behavioral: Negative for dysphoric mood. The patient is not nervous/anxious. OBJECTIVE: LMP 02/19/2018 No weight on file for this encounter. Physical Exam Constitutional: Appearance: Normal appearance. She is ill-appearing (mild). HENT: Right Ear: Tympanic membrane normal. Left Ear: Tympanic membrane normal. Nose: Rhinorrhea present. Mouth/Throat: Pharynx: Posterior oropharyngeal erythema present. Eyes: Pupils: Pupils are equal, round, and reactive to light. Cardiovascular: Rate and Rhythm: Normal rate and regular rhythm. Heart sounds: Normal heart sounds. Pulmonary: Effort: Pulmonary effort is normal. Breath sounds: Normal breath sounds. Musculoskeletal: Right lower leg: No edema. Left lower leg: No edema. Skin: Findings: Rash (Fine rash on trunk, neck, and inner right arm. This looks similar to a heat rash.) present. Neurological: Mental Status: She is alert and oriented to person, place, and time. ASSESSMENT/PLAN: 1. Viral illness - ICD9: 079.99, ICD10: B34.9 (primary diagnosis) - Discussed viral etiology and rationale for treatment. - Rapid strep negative in office today - Symptomatic treatment with prn analgesia - Supportive care with fluids and rest -We will have her call in Wednesday if she is not feeling any better at that time we will consider an antibiotic. 2. Fever, unspecified fever cause - ICD9: 780.60, ICD10: R50.9 -Continue Tylenol and ibuprofen as needed. -Drink plenty of fluids. -Strep and flu were both negative. UA was negative for everything except for a small amount of blood. - RAPID STREP TEST B/O - FLU A/B B/O - UA DIP B/O 3. Cough - ICD9: 786.2, ICD10: R05 -Monitor cough. If worsening over the weekend she should go to the ER. 4. Headache, unspecified headache type - ICD9: 784.0, ICD10: R51.9 -She can continue with Tylenol and ibuprofen for headache as needed also can use ice pack if needed. 5. Diarrhea, unspecified type - ICD9: 787.91, ICD10: R19.7 -Encouraged bland diet. Avoiding spicy food and fatty food. -Strep and flu were negative. UA did show just a small amount of blood. No signs of infection. - RAPID STREP TEST B/O - FLU A/B B (more content not included)... [facility] 11-11-2020 Note HNO ID: [id number] Author: Rachell Max RN Service: ? Author Type: Registered Nurse Type: Progress Notes Filed: 11/11/2020 3:41 PM Note Text: Self-swabs in pt vehicle: Patient ordered for COVID test by Jaye RAIN. Approached patient's vehicle in full PPE. Verified patient's name and . Explained swabbing procedure to patient and observed patient swab both nostrils. Patient tolerated the procedure well. Patient notified that results could take 2-8 days and a provider would call with results, and results would be available on patient portal, [employer], if signed up for this service. Instructed patient to call the office with any worsening symptoms. Reviewed quarantine instructions; patient verbalized understanding. Provided educational hand-out to patient. Rachell Max RN [facility] 11-11-2020 Note HNO ID: [id number] Author: Jaye Ruggiero PA-C Service: ? Author Type: Physician [employer] Type: Progress Notes Filed: 11/11/2020 2:21 PM Note Text: Telemedicine Evaluation for COVID-19 Infection My Chart Zoom was used for evaluation of this patient. Location of patient: [facility] Marii Hillman is a 30 year old female who presents with 2 days of symptoms that are worsening. Patient states she was achy, headache which started on Wednesday. She has body aches. Her Fever was 101.7. Patient was vaccinated against COVD in June. Symptoms include: Fever (?100.4F): Yes or Chills: Yes Cough: Yes Shortness of breath: No or Difficulty breathing: No Fatigue: Yes Muscle aches: Yes Headache: Yes New loss of smell or taste: No Sore throat: No Nasal congestion: No or Rhinorrhea: No Nausea: No or Vomiting: No Diarrhea: No OTC meds/remedies that patient has tried: acetaminophen. High risk category assessment No high risk factors Exposures: Sick contacts? No Family or close contacts with confirmed/probable COVID-19 in last 14 days? No She reports that she has never smoked. She has never used smokeless tobacco. OBJECTIVE VIDEO EXAM (if available) GENERAL: Well appearing, alert, in no acute distress HEENT: No conjunctival injection, pupils equal, Moist mucous membranes and Oropharynx clear without erythema PULMONARY: Breathing comfortably on room air , No coughing noted and No wheezing noted ASSESSMENT/PLAN (Z20.822) Suspected COVID-19 virus infection (primary encounter diagnosis) - Meets symptom-based criteria for testing and is low risk. - Patient scheduled for testing at the time of visit. - Discussed symptom monitoring and supportive care - Red flag symptoms requiring follow up discussed This patient encounter involved the screening or treatment of novel coronavirus infection (COVID-19). - Patient to self quarantine. We discussed symptoms for which he would need to seek out additional care through he ER. This would include shortness of breath, or worsening symptoms in any way. Patient verbalized and understanding. Beginning Home Isolation Isolation is used to separate people infected with SARS-CoV-2, the virus that causes COVID-19, from people who are not infected. People who are in isolation should stay home until it?s safe for them to be around others. In the home, anyone sick or infected should separate themselves from others by staying in a specific ?sick room? or area and using a separate bathroom (if available). Isolation or Quarantine: What's the difference? - Quarantine keeps someone who might have been exposed to the virus away from others. - Isolation keeps someone who is infected with the virus away from others, even in their home. Who needs to isolate People who have COVID-19 - People who have symptoms of COVID-19 and are able to recover at home - People who have no symptoms (are asymptomatic) but have tested positive for infection with SARS-CoV-2 Steps to take Stay home except to get medical care - Monitor your symptoms. - Stay in a separate room from other household members, if possible - Use a separate bathroom, if possible - Avoid contact with other members of the household and pets - Don?t share personal household items, like cups, towels, and utensils - Wear a mask when around other people, if you are able to When to seek emergency medical attention Look for emergency warning signs* for COVID-19. If someone is showing any of these signs, seek emergency medical care immediately: - Trouble breathing - Persistent pain or pressure in the chest - New confusion - Inability to wake or stay awake - Bluish lips or face *This list is not all possible symptoms. Please call your medical provider for any other symptoms that are severe or concerning to you. Call 911 or call ahead to your local emergency facility: Notify the arch cushion skiving machine operator that you are seeking care for someone who has or may have COVID-19. Ending Home Isolation - When you can be around others after you had or likely had COVID-19 I think or know I had COVID-19, and I had symptoms You can be with others after - At least 10 days since symptoms first appeared and - At least 24 hours with no fever without fever-reducing medication (acetaminophen, ibuprofen, and others) and - Other symptoms of COVID-19 are improving (Loss of taste and smell may persist for weeks or months after recovery and need not delay the end of isolation) If you had severe illness from COVID-19 (you were admitted to a hospital and needed oxygen), your healthcare provider may recommend that you stay in isolation for longer than 10 days after your symptoms first appeared (possibly up to 20 days) and you may need to finish your period of isolation at home. I tested positive for COVID-19 but had no symptoms If you continue to have no symptoms, you can be with others after (more content not included)... [facility] 11-05-2020 Note HNO ID: [id number] Author: Shasta Finley PA-C Service: ? Author Type: Physician [employer] Teacher Type: Progress Notes Filed: 11/05/2020 10:18 PM Note Text: This is a 30 year old White female who presents today for a follow up for her acne. Patient states that she is currently on doxycycline, spironolactone, and tretinoin cream. She states that she is currently clear but she is still having some breakouts. She has tolerated meds well without any problems. ACTIVE PROBLEM LIST Acne ALLERGIES Allergen Reactions - Duracef [Cefadroxil] Rash - Penicillins Rash - Sulfa (Sulfonamide * Rash FAMILY HISTORY Problem Relation Age of Onset - Hypertension Father - Diabetes Maternal Grandmother - Diabetes Paternal Grandfather Social History Tobacco Use - Smoking status: Never Smoker - Smokeless tobacco: Never Used Vaping Use - Vaping Use: Never used Substance Use Topics - Alcohol use: Yes Comment: Occasionally - Drug use: No Current Outpatient Medications Medication Sig Dispense Refill - spironolactone (ALDACTONE) 50 mg tablet Take 1 tablet by mouth every morning. 90 tablet 1 - minocycline (MINOCIN, DYNACIN) 100 mg capsule Take 1 capsule by mouth once daily. With food 90 capsule 1 - tretinoin (RETIN-A) 0.025 % topical cream Apply pea size drop to entire face at bedtime 45 g 3 - Drospirenone-Ethinyl Estradiol (MIGUEL 28) 3-0.02 mg per tablet TAKE 1 TABLET DAILY 84 tablet 3 No current facility-administered medications for this visit. PAST SURGICAL HISTORY Procedure Laterality Date - EXTRACTION, ERUPTED TOOTH OR EXPOSED ROOT (ELEVATION AND/OR FORCEPS REMOVAL) [place] teeth REVIEW OF SYSTEMS GENERAL: Patient feels well and denies any recent fevers, chills, or night sweats. SKIN: Negative for rash and itching, Positive for lesions: face PHYSICAL EXAMINATION BP 122/89 Temp 97.3 Ht 5' 7 (1.70m) Wt 115 lb 9.6 oz (52.4kg) LMP 02/19/2018 BMI 18.10 kg/(m2). The patient is pleasant and in no distress. She is alert and oriented x 3. Involving the face, chest and back. -face is clear with atrophic scarring with pitted scars of b/l cheeks -back and chest are clear ASSESSMENT/PLAN: 1. Acne vulgaris - ICD9: 706.1, ICD10: L70.0 -continue Tretinoin 0.025% cream apply pea sized amount to entire face qhs -discussed side effects of dryness/skin irritation -may use OTC CeraVe or Cetaphil cream with SPF 30 daily -will switch to Minocycline 100 mg one daily with food, eRx sent (if staying clear may stop completely in the next few months) -discussed side effects of medication which include hepatitis, lupus like syndrome, pseudotumor cerebri, cutaneous and tooth dyspigmentation. -continue spironolactone 50 mg once daily, eRx sent -Side effects of spironolactone include: postural hypotension, increased frequency of urination, breast tenderness, menstrual spotting, and the need for contraception due to risk of feminization. -continue gentle cleansers and daily face moisturizers with spf 30 - SPIRONOLACTONE 50 MG TABLET - MINOCYCLINE 100 MG CAPSULE Shasta Finley PA-C Return in about 6 months (around 05/07/2021). [facility] Summary Purpose Family History No Family History Records FoundNo Family History Records FoundNo Family History Records FoundNo Family History Records FoundNo Family History Records FoundNo Family History Records Found Advance Directives No Advanced Directives Records FoundNo Advanced Directives Records FoundNo Advanced Directives Records FoundNo Advanced Directives Records FoundNo Advanced Directives Records FoundNo Advanced Directives Records Found Additional Source Comments INFORMATION SOURCE (unrecogn ized section and content) DATE CREATED AUTHOR AUTHOR'S ORGANIZ ATION 11/02/2017 [facility] DATE CREATED AUTHOR AUTHOR'S ORGANIZ ATION 03/06/2021 [facility] DATE CREATED AUTHOR AUTHOR'S ORGANIZ ATION 10/18/2021 [facility] dante Khalilon DATE CREATED AUTHOR AUTHOR'S ORGANIZ ATION 10/28/2021 [facility] Source Comments (unrecognize d section and content) In the event this informatio n is protected by the Federal Confidentiality of Alcohol and Drug Abuse Patient Records regulations: The Federal rules restrict any use of the information to criminally investigate or prosecute any alcohol or drug abuse patient.[facility] the event this information is protected by the Federal Confidentiality of Alcohol and Drug Abuse Patient Records regulations: The Federal rules restrict any use of the information to criminally investigate or prosecute any alcohol or drug abuse patient.[facility] Care Teams (unrecognized sec tion and content) 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 This clinical summary was aggregated from multiple sources. Caution should be exercised in using it in the provision of clinical care. This summary normalizes information from multiple sources, and as a consequence, information in this document may materially change the coding, format and clinical context of patient data. In addition, data may be omitted in some cases. CLINICAL DECISIONS SHOULD BE BASED ON THE PRIMARY CLINICAL RECORDS. [facility]. provides no warranty or guarantee of the accuracy or completeness of information in this document.
[2023-07-19 08:36] LABS: Estradiol 15.1 pg/mL
== END | disposition home or self-care (01) ==
LOC: LAB 07:47
PROVIDERS: PCP Family Medicine; Referring Provider Nurse Practitioner Family; Visit Provider Nurse Practitioner Family
DX: E28.8 Other ovarian dysfunction (principal)
CPT/HCPCS: 36415; 82670; 84144; 84403

== ENCOUNTER → 2024-01-12 | Outpatient (CLI) | payer OTHER, SELFPAY ==
[2024-01-12 08:33] LABS: Estradiol < 11.0 pg/mL
[2024-01-13 09:14] LABS: PROGESTERONE 0.2 ng/mL (.)
== END | disposition home or self-care (01) ==
LOC: LAB 07:05
PROVIDERS: PCP Family Medicine; Referring Provider Nurse Practitioner Family; Visit Provider Nurse Practitioner Family
DX: E28.8 Other ovarian dysfunction (principal)
CPT/HCPCS: 36415; 82670; 84144; 84403